=== PATIENT | female | born 1990 | race African-American/Black ===

== ENCOUNTER 2024-03-17 22:10 | Emergency (ER) | payer MEDICAID, SELFPAY ==
[2024-03-17 22:16] VITALS: BP 161/100; PULSE 83; TEMP 36.8; O2SAT 99; BMI 36.0
--- NOTE | 2024-03-17 23:01 | ED_ITS ---
HPI - Anxiety General Chief Complaint: Anxiety Stated Complaint: dizziness, weakness Time Seen by Provider: 03/17/24 22:52 Source: patient Mode of arrival: ambulance History of Present Illness HPI narrative: history of anxiety and asthma. 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 She started to feel anxious. she was then talking to someone. States she hit her hand because she talks with her hands and this made her anxiety worse. States she felt like she was wheezing and used her inhaler but continued to feel more anxious and even like she would pass out. Squad arrived and once she was in their truck and in cooler air she felt better and arrives here asymptomatic. No complaint at this time Related Data Allergies Allergy/AdvReac Type Severity Reaction Status Date / Time acetaminophen [From Vicodin] Allergy Mild Hives Verified 03/17/24 22:16 hydrocodone [From Vicodin] Allergy Mild Hives Verified 03/17/24 22:16 Penicillins Allergy Mild Hives Verified 03/17/24 22:16 Review of Systems ROS Status of ROS 10 or more systems reviewed and unremark able except as noted in history and below Exam Constitutional Vital Signs, click to edit/add: Last Vital Signs Temp 98.2 F 03/17/24 22:16 Pulse 83 03/17/24 22:16 Resp 14 03/17/24 22:16 BP 161/100 H 03/17/24 22:16 Pulse Ox 99 03/17/24 22:16 O2 Del Method Room Air 03/17/24 22:16 Common normals: no apparent distress, average body habitus, oriented x3, no limitations, healthy appearing, alert and well nourished [facility] Common normals: normocephalic and head/scalp atraumatic Eye Common normals: EOMs intact bilaterally and conjunctivae normal Respiratory Common normals: normal respiratory effort, no retractions, no use of accessory muscles and clear to auscultation bilaterally Cardio Common normals: regular rate, regular rhythm, S1 normal heart sound and S2 normal heart sound Extremity Common normals: normal to inspection and full ROM Neuro Common normals: oriented x3, CN's II-XII intact bilaterally and moves all extremities Psych Appearance: grossly normal Course Vital Signs Vital signs: Vital Signs Temperature 98.2 F 03/17/24 22:16 Pulse Rate 83 03/17/24 22:16 Respiratory Rate 14 03/17/24 22:16 Blood Pressure 161/100 H 03/17/24 22:16 Pulse Oximetry 99 03/17/24 22:16 Oxygen Delivery Method Room Air 03/17/24 22:16 Temperature 98.2 F 03/17/24 22:16 Pulse Rate 83 03/17/24 22:16 Respiratory Rate 14 03/17/24 22:16 Blood Pressure 161/100 H 03/17/24 22:16 Pulse Oximetry 99 03/17/24 22:16 Oxygen Delivery Method Room Air 03/17/24 22:16 MDM - Anxiety MDM Narrative Medical decision making narrative: patient present from work with an anxiety attack. once she was placed in the [employer] truck her symptoms starting abating and she arrives here asymptomatic. Normal exam. Discharged home in improved and stable condition Discharge Plan Discharge Stand Alone Forms: Portal Instructions Chief Complaint: Anxiety Clinical Impression: Acute anxiety Patient Disposition: Home, Self-Care Print Language: Hungarian Instructions: Anxiety (ED) Referrals: STEVEN LUCAS [Primary Care Provider] - 1 week
== END 2024-03-17 23:08 | disposition home or self-care (01) ==
PROVIDERS: Emergency Provider Internal Medicine
DX: F41.9 Anxiety disorder, unspecified (principal)
CPT/HCPCS: 99283

== ENCOUNTER 2024-05-02 20:50 | Emergency (ER) | payer MEDICAID, SELFPAY ==
[2024-05-02 20:55] VITALS: BP 167/81; PULSE 83; TEMP 36.5; O2SAT 100; O2SAT 99; BMI 36.0
--- NOTE | 2024-05-02 20:56 | XR_ITS ---
The [address] [address] Patient Name: DARY MORALEZ MRN: [id number] date: 1990 Sex: F Assigned Patient Location: ER Current Patient Location: Accession/Order Number: [id number] Exam Date: 05/02/2024 21:40 Report Date: 05/02/2024 23:59 At the request of: CHRIS ANDRADE Procedure: XR chest 1V EXAM: XR chest 1V HISTORY: Dizziness, near-syncope COMPARISON: None. TECHNIQUE: One view of the chest was obtained. FINDINGS: The cardiac silhouette is borderline enlarged. There is interstitial prominence. There is no significant pneumothorax or pleural effusion. No acute osseous abnormality is seen. XR/XR chest 1V IMPRESSION: 1. Borderline enlarged cardiac silhouette with mild interstitial prominence that could represent edema and/or bronchitis. Electronically authenticated by: Terry ANDERSON Date: 05/02/2024 23:59
--- NOTE | 2024-05-02 20:56 | ECG_ITS ---
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
--- NOTE | 2024-05-02 20:57 | ED.DIZZY1 ---
Documented by User: Mariandaya Dumonton 05/02/24 22:00 HPI - Dizziness General Chief Complaint: Dizziness Stated Complaint: SOB Time Seen by Provider: 05/02/24 20:56 History of Present Illness HPI Narrative: 33 year old female presents to the ED via EMS. This evening she developed dizziness, N/V. Reports a near-syncopal episode. States she became diaphoretic. States she lowered herself to the floor. 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 The temperature outside was in the 90s today. Denies CP. She now has a cough. Denies BUNCH, vision changes, abd pain, diarrhea. She is feeling much better. Denies chance of . Denies cardiac history. Related Data Allergies Allergy/AdvReac Type Severity Reaction Status Date / Time acetaminophen [From Vicodin] Allergy Mild Hives Verified 05/02/24 20:58 hydrocodone [From Vicodin] Allergy Mild Hives Verified 05/02/24 20:58 Penicillins Allergy Mild Hives Verified 05/02/24 20:58 Review of Systems ROS Constitutional Reports: fatigue; Denies: fever or chills Eyes Denies: change in vision Ears, nose, mouth, and throat Denies: throat pain or neck pain Cardiovascular Reports: lightheadedness; Denies: chest pain Respiratory Reports: cough Gastrointestinal Reports: nausea and vomiting; Denies: abdominal pain or diarrhea Musculoskeletal Denies: back pain or neck pain Neurological Reports: dizziness; Denies: headache or numbness in extremities Exam Constitutional Vital Signs, click to edit/add: Last Vital Signs Temp 97.7 F 05/02/24 20:55 Pulse 71 05/02/24 21:30 Resp 25 H 05/02/24 21:30 BP 167/81 H 05/02/24 20:55 Pulse Ox 100 05/02/24 20:55 O2 Del Method Room Air 05/02/24 20:55 Common normals: no apparent distress, oriented x3 and alert General appearance: cooperative Other: Diaphoretic HENMT Mouth: oral and palatal mucosa normal, lip normal and tongue normal Throat: posterior oropharynx normal Eye Common normals: PERRL, EOMs intact bilaterally, conjunctivae normal and no scleral icterus Neck & C-Spine Common normals: supple Chest Chest: symmetrical chest wall rise Respiratory Common normals: normal respiratory effort and clear to auscultation bilaterally Effort & inspection: able to speak in complete sentences Cardio Common normals: regular rate and regular rhythm Neuro Common normals: oriented x3, CN's II-XII intact bilaterally and moves all extremities Sensorium/orientation: awake Speech: speech normal Course Vital Signs Vital signs: Vital Signs Temperature 97.7 F 05/02/24 20:55 Pulse Rate 83 05/02/24 20:55 Respiratory Rate 18 05/02/24 20:55 Blood Pressure 167/81 H 05/02/24 20:55 Pulse Oximetry 99 05/02/24 20:55 Oxygen Delivery Method Room Air 05/02/24 20:55 Temperature 97.7 F 05/02/24 20:55 Pulse Rate 71 05/02/24 21:30 Respiratory Rate 25 H 05/02/24 21:30 Blood Pressure 167/81 H 05/02/24 20:55 Pulse Oximetry 100 05/02/24 20:55 Oxygen Delivery Method Room Air 05/02/24 20:55 MDM - Dizziness MDM Narrative Medical decision making narrative: Laboratory studies were pending. Care was resumed to Dr. San. See her dictation for further evaluation and treatment. Medical Records Attestation: I reviewed the patient's medical records. Lab Data Attestation: I reviewed the patient's lab results. Labs: Lab Results 05/02/24 Range/Units 21:05 WBC 9.8 (4.0-11.0) 10^3/uL RBC 3.66 L (4.20-5.40) 10^6/uL Hgb 10.9 L (12.0-16.0) g/dL Hct 33.2 L (36.0-48.0) % MCV 90.7 (81.0-99.0) fL MCH 29.8 (26.7-34.0) pg MCHC 32.8 (29.9-35.2) g/dL RDW 13.6 (11.0-15.0) % Plt Count 212 (150-450) 10^3/uL MPV 10.9 (9.5-13.5) fL Neut % (Auto) 58.1 (43.0-75.0) % Lymph % (Auto) 29.8 (20.5-60.0) % [place] % (Auto) 6.1 (1.7-12.0) % Eos % (Auto) 5.3 (0.9-7.0) % Baso % (Auto) 0.4 (0.2-2.0) % Neut # (Auto) 5.7 (1.4-6.5) 10^3/uL Lymph # (Auto) 2.9 (1.2-3.8) 10^3/uL [place] # (Auto) 0.6 (0.3-0.8) 10^3/uL Eos # (Auto) 0.5 (0.0-0.7) 10^3/uL Baso # (Auto) 0.0 (0.0-0.1) 10^3/uL Abs Immat Gran (auto) 0.03 (0.00-0.03) 10^3/uL Imm/Tot Granulo (auto) 0.3 (0.0-0.5) % Sodium 143 (136-145) mmol/L Potassium 3.6 (3.5-5.1) mmol/L Chloride 105 (98-107) mmol/L Carbon Dioxide 28.5 (21.0-32.0) mmol/L Anion Gap 13.1 BUN 13.0 (7.0-18.0) mg/dL Creatinine 0.92 (0.55-1.02) mg/dL Est GFR ( Amer) >60 (>=60) Est GFR (Non-Af Amer) >60 (>=60) BUN/Creatinine Ratio 14.1 Glucose 108 H (74-106) mg/dL Calcium 8.7 (8.5-10.1) mg/dL Magnesium 2.1 (1.8-2.4) mg/dL Total Bilirubin 0.3 (0.2-1.0) mg/dL AST 15 (15-37) U/L ALT 25 (14-59) U/L Alkaline Phosphatase 59 (46-116) U/L Total Protein 6.4 (6.4-8.2) g/dL Albumin 3.5 (3.4-5.0) g/dL Globulin 2.9 g/dL Albumin/Globulin Ratio 1.2 ECG Data Attestation: ?I have reviewed the pertinent ECG results. (EKG was reviewed by the attending physician. It showed sinus rhythm at a rate of 78. No acute ST segment changes. ) Interpretation: Measurements Intervals [place] Rate: 78 P: 57 MS: 146 QRS: 87 QRSD: 84 T: 51 QT: 388 QTc: 421 Interpretive Statements 1100 Sinus rhythm 9110 normal ECG No previous ECG available for comparison Discharge Plan Discharge Stand Alone Forms: Work/School Release, Portal Instructions Chief Complaint: Dizziness Clinical Impression: Near syncope, Heat effect Patient Disposition: Home, Self-Care Time of Disposition Decision: 22:15 Condition: Good Print Language: Montserratian Instructions: Heat Exhaustion (ED) Referrals: STEVEN LUCAS [Primary Care Provider] - 1 week Documented by User: Adri San MD 05/02/24 22:17 HPI - Dizziness General Chief Complaint: Dizziness Stated Complaint: SOB Time Seen by Provider: 05/02/24 20:56 Related Data Allergies Allergy/AdvReac Type Severity Reaction Status Date / Time acetaminophen [From Vicodin] Allergy Mild Hives Verified 05/02/24 20:58 hydrocodone [From Vicodin] Allergy Mild Hives Verified 05/02/24 20:58 Penicillins Allergy Mild Hives Verified 05/02/24 20:58 Exam Constitutional Vital Signs, click to edit/add: Last Vital Signs Temp 97.7 F 05/02/24 20:55 Pulse 71 05/02/24 21:30 Resp 25 H 05/02/24 21:30 BP 167/81 H 05/02/24 20:55 Pulse Ox 100 05/02/24 20:55 O2 Del Method Room Air 05/02/24 20:55 Course Vital Signs Vital signs: Vital Signs Temperature 97.7 F 05/02/24 20:55 Pulse Rate 83 05/02/24 20:55 Respiratory Rate 18 05/02/24 20:55 Blood Pressure 167/81 H 05/02/24 20:55 Pulse Oximetry 99 05/02/24 20:55 Oxygen Delivery Method Room Air 05/02/24 20:55 Temperature 97.7 F 05/02/24 20:55 Pulse Rate 71 05/02/24 21:30 Respiratory Rate 25 H 05/02/24 21:30 Blood Pressure 167/81 H 05/02/24 20:55 Pulse Oximetry 100 05/02/24 20:55 Oxygen Delivery Method Room Air 05/02/24 20:55 MDM - Dizziness MDM Narrative Medical decision making narrative: Laboratory studies were pending. Care was resumed to Dr. San. See her dictation for further evaluation and treatment. This 33-year-old female was seen and evaluated in conjunction with the nurse practitioner. 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 She was medicated in the emergency department on reevaluation is feeling better. She is drinking water having a popsicle and a granola bar. She request to be discharged at this time and requests a note for work for today and tomorrow as the temperature is post to be in the 100 degree range tomorrow and she was told to get a note for work so she does not have to go in tomorrow. Labs are reviewed and are normal. She is stable for discharge at this time. Lab Data Labs: Lab Results 05/02/24 Range/Units 21:05 WBC 9.8 (4.0-11.0) 10^3/uL RBC 3.66 L (4.20-5.40) 10^6/uL Hgb 10.9 L (12.0-16.0) g/dL Hct 33.2 L (36.0-48.0) % MCV 90.7 (81.0-99.0) fL MCH 29.8 (26.7-34.0) pg MCHC 32.8 (29.9-35.2) g/dL RDW 13.6 (11.0-15.0) % Plt Count 212 (150-450) 10^3/uL MPV 10.9 (9.5-13.5) fL Neut % (Auto) 58.1 (43.0-75.0) % Lymph % (Auto) 29.8 (20.5-60.0) % [place] % (Auto) 6.1 (1.7-12.0) % Eos % (Auto) 5.3 (0.9-7.0) % Baso % (Auto) 0.4 (0.2-2.0) % Neut # (Auto) 5.7 (1.4-6.5) 10^3/uL Lymph # (Auto) 2.9 (1.2-3.8) 10^3/uL [place] # (Auto) 0.6 (0.3-0.8) 10^3/uL Eos # (Auto) 0.5 (0.0-0.7) 10^3/uL Baso # (Auto) 0.0 (0.0-0.1) 10^3/uL Abs Immat Gran (auto) 0.03 (0.00-0.03) 10^3/uL Imm/Tot Granulo (auto) 0.3 (0.0-0.5) % Sodium 143 (136-145) mmol/L Potassium 3.6 (3.5-5.1) mmol/L Chloride 105 (98-107) mmol/L Carbon Dioxide 28.5 (21.0-32.0) mmol/L Anion Gap 13.1 BUN 13.0 (7.0-18.0) mg/dL Creatinine 0.92 (0.55-1.02) mg/dL Est GFR ( Amer) >60 (>=60) Est GFR (Non-Af Amer) >60 (>=60) BUN/Creatinine Ratio 14.1 Glucose 108 H (74-106) mg/dL Calcium 8.7 (8.5-10.1) mg/dL Magnesium 2.1 (1.8-2.4) mg/dL Total Bilirubin 0.3 (0.2-1.0) mg/dL AST 15 (15-37) U/L ALT 25 (14-59) U/L Alkaline Phosphatase 59 (46-116) U/L Total Protein 6.4 (6.4-8.2) g/dL Albumin 3.5 (3.4-5.0) g/dL Globulin 2.9 g/dL Albumin/Globulin Ratio 1.2 ECG Data Attestation: I personally reviewed and interpreted this ECG as follows: (EKG was reviewed by the attending physician. It showed sinus rhythm at a rate of 78. No acute ST segment changes. ) Discharge Plan Discharge Stand Alone Forms: Work/School Release, Portal Instructions Chief Complaint: Dizziness Clinical Impression: Near syncope, Heat effect Patient Disposition: Home, Self-Care Time of Disposition Decision: 22:15 Condition: Good Print Language: Montserratian Instructions: Heat Exhaustion (ED) Referrals: STEVEN LUCAS [Primary Care Provider] - 1 week
[2024-05-02 21:00] VITALS: PULSE 79
[2024-05-02 21:10] VITALS: PULSE 89
[2024-05-02 21:19] LABS: Basophils Percent Auto 0.4 % (0.2-2.0); Eosinophils Absolute Auto 0.5 10^3/uL (0.0-0.7); Eosinophils Percent Auto 5.3 % (0.9-7.0); Hematocrit 33.2 % (36.0-48.0); Hemoglobin 10.9 g/dL (12.0-16.0); Immature Granulocytes Abs Auto 0.03 10^3/uL (0.00-0.03); Immature Granulocytes Pct Auto 0.3 % (0.0-0.5); Lymphocytes Absolute Auto 2.9 10^3/uL (1.2-3.8); Lymphocytes Percent Auto 29.8 % (20.5-60.0); Mean Corpuscular HGB Conc 32.8 g/dL (29.9-35.2); Mean Corpuscular Hemoglobin 29.8 pg (26.7-34.0); Mean Corpuscular Volume 90.7 fL (81.0-99.0); Mean Platelet Volume 10.9 fL (9.5-13.5); Monocytes Absolute Auto 0.6 10^3/uL (0.3-0.8); Monocytes Percent Auto 6.1 % (1.7-12.0); Neutrophils Absolute Auto 5.7 10^3/uL (1.4-6.5); Neutrophils Percent Auto 58.1 % (43.0-75.0); Platelet Count 212 10^3/uL (150-450); Red Blood Count 3.66 10^6/uL (4.20-5.40); Red Cell Distribution Width 13.6 % (11.0-15.0); White Blood Count 9.8 10^3/uL (4.0-11.0)
[2024-05-02 21:20] VITALS: PULSE 79
[2024-05-02] MEDS: 0.9 % SODIUM CHLORIDE 1,000 ML 999 ML IV (21:20)
[2024-05-02 21:30] VITALS: PULSE 71
[2024-05-02 21:34] LABS: Alanine Aminotransferase 25 U/L (14-59); Albumin Globulin Ratio 1.2; Albumin Level 3.5 g/dL (3.4-5.0); Alkaline Phosphatase 59 U/L (46-116); Anion Gap 13.1; Aspartate Amino Transferase 15 U/L (15-37); BUN Creatinine Ratio 14.1; Bilirubin Total 0.3 mg/dL (0.2-1.0); Calcium 8.7 mg/dL (8.5-10.1); Carbon Dioxide 28.5 mmol/L (21.0-32.0); Chloride 105 mmol/L (98-107); Estimated GFR (African America >60 (>=60); Estimated GFR (Non-African Ame >60 (>=60); Globulin 2.9 g/dL; Glucose 108 mg/dL (74-106); Magnesium 2.1 mg/dL (1.8-2.4); Potassium 3.6 mmol/L (3.5-5.1); Sodium 143 mmol/L (136-145); Total Protein 6.4 g/dL (6.4-8.2)
[2024-05-02 22:25] VITALS: BP 145/85; PULSE 80; O2SAT 99
[2024-05-02 23:52] LABS: Creatine Kinase 136 U/L (26-192); Myoglobin 37 ng/mL (9-82); Troponin I High Sensitivity <4.0 pg/mL (4.0-51.3)
== END 2024-05-02 22:25 | disposition home or self-care (01) ==
PROVIDERS: Nurse Practitioner Family; Emergency Provider Emergency Medicine
DX: R55 Syncope and collapse (principal); T67.9XXA Effect of heat and light, unspecified, initial encounter; X30.XXXA Exposure to excessive natural heat, initial encounter
CPT/HCPCS: 36415; 71045; 80053; 82550; 83735; 83874; 84484; 85025; 93005; 96360; 99285

== ENCOUNTER 2024-09-17 05:31 | Emergency (ER) | payer MEDICAID, SELFPAY ==
--- OUTSIDE RECORDS SUMMARY | 2024-09-17 05:38 | XMS_ITS | CCD ---
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 [address] pH (U) 7.5 [pH] Normal 5.0-9.0 [facility] Comment on above: Order Comment: Name Collection Type:: Clean-Voided Midstream Performed By: #### U A, UHCG #### [address] Protein,Urine Negative Normal Negative [facility] Comment on above: Order Comment: Name Collection Type:: Clean-Voided Midstream Performed By: #### U A, UHCG #### [place] [address] [place] Specificy [place],Urine 1.014 Normal 1.001-1.030 [facility] Comment on above: Order Comment: Name Collection Type:: Clean-Voided Midstream Performed By: #### U A, UHCG #### [address] Urobilinogen,Urine Normal Normal Normal [facility] Comment on above: Order Comment: Name Collection Type:: Clean-Voided Midstream Performed By: #### U A, UHCG #### [place] [address] [facility] XR chest 1V portableon 11-23 XR chest 1V portable [facility] [address] [place] [address] XRay Report Signed Patient: Darrell Musa MR#: [id number] : 1990 Acct:[id number] Age/Sex: 33 / F ADM Date: 11/23/23 Loc: ER Room: Type: [facility] ER Attending Dr: Copies to: Richard Irwin DO Ordering Provider: Richard Irwin DO Date of Service: 11/23/23 XR/XR chest 1V portable: Upper Respiratory Infection Plain film chest Single view HISTORY: Cough and congestion COMPARISON: 02/10/2019 FINDINGS: SUPPORT DEVICES: None POSTSURGICAL CHANGES: None HEART: Within normal limits PULMONARY ANDRIY: Within normal limits MEDIASTINUM: Unremarkable LUNGS AND PLEURA: No acute lung process, pleural effusion or pneumothorax identified. BONY STRUCTURES: Intact ADDITIONAL FINDINGS None XR/XR chest 1V portable IMPRESSION: No acute process. Impression dictated by: Stuart Garcia M.D.11/24/2023 8:04 AM Dictation Location: [facility] Transcribed By: [facility] 11/24/23 0804 Dictated By: Stuart Garcia DO 11/24/23 0804 Signed By: 11/24/23 0804 Normal [facility] COVID CepheidOrdered By: Jewell Irwin on 11-23-2023 SARS-CoV-2 (COVID-19) Ab IA Ql Negative Negative [facility] Comment on above: This is a duplicate Cepheid Xpert Xpress CoV-2/Flu/RSV Plus RNA by RT-PCR result to be used for statistical tracking purpose only. SARS-CoV-2 (COVID-19) RNA HAILEY+probe Ql (Unsp spec) [facility] COVID-19 / Flu A/B / RSV PCR on 11-23-2023 SARS-CoV-2 (COVID-19) RNA HAILEY+probe Ql (Unsp spec) COVID-19 Cepheid Result Negative for SARS-CoV-2 RNA by RT-PCR Flu A Cepheid Result Positive for Flu A RNA by RT-PCR Flu B Cepheid Result Negative for Flu B RNA by RT-PCR RSV Cepheid Result Negative for RSV RNA by RT-PCR COVID19 Blank Space Reference: Negative COVID19 Blank Space Cepheid Disclaimer The Cepheid Xpert Xpress CoV-2/Flu/RSV Plus has Cepheid Disclaimer not been FDA cleared or approved; this test has Cepheid Disclaimer been authorized by FDA under an EUA for use by Cepheid Disclaimer authorized laboratories; this test has been Cepheid Disclaimer authorized only for the simultaneous qualitative Cepheid Disclaimer detection and differentiation of nucleic acids from Cepheid Disclaimer SARS-CoV-2, influenza A, influenza B, and Cepheid Disclaimer respiratory syncytial virus (RSV), and not for any Cepheid Disclaimer other viruses or pathogens; and this test is only Cepheid Disclaimer authorized for the duration of the declaration that Cepheid Disclaimer circumstances exist justifying the authorization of Cepheid Disclaimer emergency use of in vitro diagnostic tests for Cepheid Disclaimer detection and/or diagnosis of COVID-19 under Cepheid Disclaimer Section 564(b)(1) of the Act, 21 U.S.C. 360bbb- Cepheid Disclaimer 3(b)(1), unless the authorization is terminated or Cepheid Disclaimer revoked sooner. PERFORMED BY: [facility] [address] [place] [address] PATHOLOGIST FAMILY AND CONSUMER SCIENCE PROFESSOR GENET NEWMAN M.D. Normal [facility] Comment on above: Performed By: #### C EPHEID NEG, COVID19 FLU RSV #### [facility] [address] [place] [address] [facility] Cepheid COVID PCR Negativeon 11-23-2023 SARS-CoV-2 (COVID-19) RNA HAILEY+probe Ql (Unsp spec) Negative Normal Negative [facility] Comment on above: Result Comment: This is a duplicate Cepheid Xpert Xpress CoV-2/Flu/RSV Plus RNA by RT-PCR result to be used for statistical tracking purpose only. PERFORMED BY: [facility] [address] [place] [address] PATHOLOGIST FAMILY AND CONSUMER SCIENCE PROFESSOR GENET NEWMAN M.D. Performed By: #### C EPHEID NEG, COVID19 FLU RSV #### [facility] [address] COVID CepheidOrdered By: Humberto Gardner on 11-08-2023 SARS-CoV-2 (COVID-19) Ab IA Ql Negative Negative [facility] Comment on above: This is a duplicate Cepheid Xpert Xpress CoV-2/Flu/RSV Plus RNA by RT-PCR result to be used for statistical tracking purpose only. SARS-CoV-2 (COVID-19) RNA HAILEY+probe Ql (Unsp spec) [facility] COVID-19 / Flu A/B / RSV PCR on 11-08-2023 SARS-CoV-2 (COVID-19) RNA HAILEY+probe Ql (Unsp spec) COVID-19 Cepheid Result Negative for SARS-CoV-2 RNA by RT-PCR Flu A Cepheid Result Negative for Flu A RNA by RT-PCR Flu B Cepheid Result Negative for Flu B RNA by RT-PCR RSV Cepheid Result Negative for RSV RNA by RT-PCR COVID19 Blank Space Reference: Negative COVID19 Blank Space Cepheid Disclaimer The Cepheid Xpert Xpress CoV-2/Flu/RSV Plus has Cepheid Disclaimer not been FDA cleared or approved; this test has Cepheid Disclaimer been authorized by FDA under an EUA for use by Cepheid Disclaimer authorized laboratories; this test has been Cepheid Disclaimer authorized only for the simultaneous qualitative Cepheid Disclaimer detection and differentiation of nucleic acids from Cepheid Disclaimer SARS-CoV-2, influenza A, influenza B, and Cepheid Disclaimer respiratory syncytial virus (RSV), and not for any Cepheid Disclaimer other viruses or pathogens; and this test is only Cepheid Disclaimer authorized for the duration of the declaration that Cepheid Disclaimer circumstances exist justifying the authorization of Cepheid Disclaimer emergency use of in vitro diagnostic tests for Cepheid Disclaimer detection and/or diagnosis of COVID-19 under Cepheid Disclaimer Section 564(b)(1) of the Act, 21 U.S.C. 360bbb- Cepheid Disclaimer 3(b)(1), unless the authorization is terminated or Cepheid Disclaimer revoked sooner. PERFORMED BY: [place] [address] PATHOLOGIST FAMILY AND CONSUMER SCIENCE PROFESSOR GENET NEWMAN M.D. Normal [facility] Comment on above: Performed By: #### C EPHEID NEG, COVID19 FLU RSV, QS #### [address] Cepheid COVID PCR Negativeon 11-08-2023 SARS-CoV-2 (COVID-19) RNA HAILEY+probe Ql (Unsp spec) Negative Normal Negative [facility] Comment on above: Result Comment: This is a duplicate Cepheid Xpert Xpress CoV-2/Flu/RSV Plus RNA by RT-PCR result to be used for statistical tracking purpose only. PERFORMED BY: [place] [address] PATHOLOGIST FAMILY AND CONSUMER SCIENCE PROFESSOR GENET NEWMAN M.D. Performed By: #### C EPHEID NEG, COVID19 FLU RSV, QS #### [address] [address] [facility] Quick Strepon 11-08-2023 Quick Strep Streptococcus pyogenes Ag [Presence] in Throat by Rapid immunoassay Negative for Group A Strep Antigen Note 1 NOTE 2 Results are those of a screening test. NOTE 3 If clinically indicated please order a culture. NOTE 4 NOTE 5 Reference range = Negative PERFORMED BY: [address] [place] [address] PATHOLOGIST FAMILY AND CONSUMER SCIENCE PROFESSOR GENET NEWMAN M.D. Normal [facility] Comment on above: Performed By: #### C EPHEID NEG, COVID19 FLU RSV, QS #### [address] Streptococcus pyogenes antig en detectionOrdered By: Lupe Gardner on 11-08-2023 S. pyogenes Ag Ql (Unsp spec) [facility] Family Medicine Office/Clini c Noteon 09-03-2023 Family Medicine Office/Clinic Note Chief Complaint New pt wheezing HPI Staff 33 yo female here today with wheezing Symptoms began going on for a long time Complains of wheezing at night Pt states she needs inhaler- lost last one pt has acute asthma History of Present Illness I have reviewed and verified the staff HPI to be accurate for this encounter. Portions of this record have been created with voice recognition software. Occasional wrong-word or ?llrso-u-cxij? substitutions may have occurred due to the inherent limitations of voice recognition software. 33 yo female presents today with cc of wheezing. Pt does note hx of asthma. Patient states about 2 days ago she noticed some wheezing. States she has a slight cough but states is not totally abnormal for her. States that she has had intermittent wheezing for a long time with her history of asthma states it is mostly at nighttime. States she could not find her inhaler so has not had it in a couple of days. Denies any recent sick contacts or recent travel. She states she has black mold and white mold at her home which does not help her asthma states she is also 1/2 pack/day smoker. States that her current job she works with [employer] was around lots of dust etc. which also does not help. She denies any fever chills weakness denies any recent sick contacts or recent travel denies any known COVID-19 or influenza exposure denies any chest pain shortness of breath or difficulty breathing with her cough but denies any wheezing currently at this time. She has no other concerns at this time. Does have follow-up primary care provider in [place] but states was not able to get into see them and plans to return to work today. Medication allergy to amoxicillin and penicillin. Review of Systems PHQ Score Initial Depression Screen Score: 0 SCORE ROS negative unless otherwise stated in HPI. Physical Exam Vitals & Measurements T: 36.7 ?C(Oral) HR: 100(Peripheral) BP: 132/86 SpO2: 97% HT: 67 in HT: 169 cm WT: 103.4 kg WT: 227.48 lb BMI: 36.2 General: Pleasant obese female, no acute distress Eyes: Bilateral conjunctiva within normal limits no injection Ears: Bilateral TMs within normal limits no erythema or bulging. Bilateral external auditory canals within normal limits no erythema or edema. Nose: No deformity, discharge, inflammation, or lesions Mouth: Moist mucous membranes. Uvula is midline. No tonsillar erythema or exudate. No signs of peritonsillar abscess. No trismus or drooling. Neck: no adenopathy Lungs: Lung sounds are clear bilaterally. No wheezing rhonchi or crackles on exam. Cardio: S1, S2, regular rhythm. No murmurs gallops or rubs. Abdomen: not assessed Musculoskeletal: not assessed Extremity: not assessed Neurologic: not assessed Skin: No rashes, ulcerations, or suspicious lesions Mental Status: Alert and oriented x3. Normal mood and affect Assessment/Plan 1. Wheezing (R06.2: Wheezing) Please follow-up with your primary care provider in 3 to 5 days contact their office this afternoon to schedule a follow-up appointment. You were seen and evaluated today in convenient care in regards to wheezing with history of asthma. You do have a little bit of a slight cough which seems to be intermittent in which we will treat with Tessalon Perles, cough suppressant 1 tablet every 8 hours as needed for coughing over the next 7 days. Will also send a refill of your albuterol inhaler 2 puffs every 4-6 hours as needed for wheezing and as prescribed by primary care provider as well. Patient agrees and understands plan. She will follow closely with primary care provider if she would develop any worsening or concerning symptoms and understands ER for reevaluation if shops any chest pain shortness of breath or difficulty breathing. Patient agrees and understands plan. Ordered: albuterol, 2 puff(s), Inhalation, q4hr for wheezing for 7 day(s), 8 gm, Refill(s) 0, [facility]/pharmacy #[id number], 169, cm, 09/03/23 10:41:00 EST, Height/Length Dosing, 103.4, kg, 09/03/23 10:41:00 EST, Weight Dosing benzonatate, 100 mg = 1 cap(s), Oral, TID, X 7 day(s), # 21 cap(s), Refills(s) 0, Pharmacy: [facility]/pharmacy #[id number], 169, cm, 09/03/23 10:41:00 EST, Height/Length Dosing, 103.4, kg, 09/03/23 10:41:00 EST, Weight Dosing 2. Cough (R05.9: Cough, unspecified) see above Ordered: albuterol, 2 puff(s), Inhalation, q4hr for wheezing for 7 day(s), 8 gm, Refill(s) 0, [facility]/pharmacy #[id number], 169, cm, 09/03/23 10:41:00 EST, Height/Length Dosing, 103.4, kg, 09/03/23 10:41:00 EST, Weight Dosing benzonatate, 100 mg = 1 cap(s), Oral, TID, X 7 day(s), # 21 cap(s), Refills(s) 0, Pharmacy: [facility]/pharmacy #[id number], 169, cm, 09/03/23 10:41:00 EST, Height/Length Dosing, 103.4, kg, 09/03/23 10:41:00 EST, Weight Dosing Follow-up With When Contact Information NONE, XXXX [phone] Additional Instructions: Patient Education Cough, Adult Problem List/Past Medical History Ongoing Abnormal uterine bleeding. Abrasion of nose Adjustment disorder with disturbance o (more content not included)... Normal [facility] Comment on above: Result Comment: Elec tronically Signed By: Pedro GEORGE, Abad Ramires\.br\Date and Time Signed: 09/03/23 11:24 EST Patient Educationon 09-03-20 Patient Education ENT Cough, Adult Coughing is a reflex that clears your throat and your airways (respiratory system). Coughing helps to heal and protect your lungs. It is normal to cough occasionally, but a cough that happens with other symptoms or lasts a long time may be a sign of a condition that needs treatment. An acute cough may only last 2?3 weeks, while a chronic cough may last 8 or more weeks. Coughing is commonly caused by: ? Infection of the respiratory systemby viruses or bacteria. ? Breathing in substances that irritate your lungs. ? Allergies. ? Asthma. ? Mucus that runs down the back of your throat (postnasal drip). ? Smoking. ? Acid backing up from the stomach into the esophagus (gastroesophageal reflux). ? Certain medicines. ? Chronic lung problems. ? Other medical conditions such as heart failure or a blood clot in the lung (pulmonary embolism). Follow these instructions at home: Medicines ? Take vyjk-ote-zzgrruh and prescription medicines only as told by your health care provider. ? Talk with your health care provider before you take a cough suppressant medicine. Lifestyle ? Avoid cigarette smoke. Do not use any products that contain nicotine or tobacco, such as cigarettes, e-cigarettes, and chewing tobacco. If you need help quitting, ask your health care provider. ? Drink enough fluid to keep your urine pale yellow. ? Avoid caffeine. ? Do not drink alcohol if your health care provider tells you not to drink. General instructions ? Pay close attention to changes in your cough. Tell your health care provider about them. ? Always cover your mouth when you cough. ? Avoid things that make you cough, such as perfume, candles, cleaning products, or campfire or tobacco smoke. ? If the air is dry, use a cool mist vaporizer or humidifier in your bedroom or your home to help loosen secretions. ? If your cough is worse at night, try to sleep in a semi-upright position. ? Rest as needed. ? Keep all follow-up visits as told by your health care provider. This is important. Contact a health care provider if you: ? Have new symptoms. ? Cough up pus. ? Have a cough that does not get better after 2?3 weeks or gets worse. ? Cannot control your cough with cough suppressant medicines and you are losing sleep. ? Have pain that gets worse or pain that is not helped with medicine. ? Have a fever. ? Have unexplained weight loss. ? Have night sweats. Get help right away if: ? You cough up blood. ? You have difficulty breathing. ? Your heartbeat is very fast. These symptoms may represent a serious problem that is an emergency. Do not wait to see if the symptoms will go away. Get medical help right away. Call your local emergency services (911 in the [place] Do not drive yourself to the hospital. Summary ? Coughing is a reflex that clears your throat and your airways. It is normal to cough occasionally, but a cough that happens with other symptoms or lasts a long time may be a sign of a condition that needs treatment. ? Take qfpw-wzx-eycoybd and prescription medicines only as told by your health care provider. ? Always cover your mouth when you cough. ? Contact a health care provider if you have new symptoms or a cough that does not get better after 2?3 weeks or gets worse. This information is not intended to replace advice given to you by your health care provider. Make sure you discuss any questions you have with your health care provider. Document Revised: 09/12/2019 Document Reviewed: 09/12/2019 [employer] Patient Education ? 2022 [employer] Normal [facility] Bilirubin Test strip Ql (U)O rdered By: Silas Villarael on 04-01-2023 Bilirubin Ql (U) Negative Negative [facility] Color Auto (U)Ordered By: Dayana Villareal on 04-01-2023 Color (U) Yellow Yellow [facility] HCG ( test) IA.rapi d Ql (U)Ordered By: Silas Villareal on 04-01-2023 HCG ( test) Ql (U) Negative [facility] Ketones Auto test strip (U) [Mass/Vol]Ordered By: Silas Villareal on 04-01-2023 Ketones (U) [Mass/Vol] Negative Negative [facility] Nitrite Test strip Ql (U)Ord ered By: Silas Villareal on 04-01-2023 Nitrite Ql (U) Negative Negative [facility] Protein Auto test strip (U) [Mass/Vol]Ordered By: Silas Villareal on 04-01-2023 Protein (U) [Mass/Vol] Negative Negative [facility] Specific gravity Auto test s trip (U) [Rel density]Ordered By: Silas Villareal on 04-01-2023 Specific gravity (U) [Rel density] 1.022 1.001-1.030 [facility] Urine clarity by refractomet ry automatedOrdered By: Silas Villareal on 04-01-2023 Clarity Refractometry automated (U) Clear Clear [facility] Urine glucose measurement by automated test strip (mass/volume)Ordered By: Silas Villareal on 04-01-2023 Glucose Auto test strip (U) [Mass/Vol] Normal mg/dL Normal [facility] Urine hemoglobin detection b y automated test stripOrdered By: Silas Villareal on 04-01-2023 Hemoglobin Auto test strip Ql (U) Negative Negative [facility] Urine leukocyte esterase det ection by automated test stripOrdered By: Silas Villareal on 04-01-2023 Leukocyte esterase Auto test strip Ql (U) Negative Negative [facility] Urobilinogen Auto test strip (U) [Mass/Vol]Ordered By: Silas Villareal on 04-01-2023 Urobilinogen (U) [Mass/Vol] Normal mg/dL Normal [facility] pH Auto test strip (U)Ordere d By: Silas Villareal on 04-01-2023 pH (U) 5.5 [pH] 5.0-9.0 [facility] HCG ( test) IA.rapi d Ql (U)Ordered By: Don Dean on 08-22-2022 HCG ( test) Ql (U) Negative [facility] COVID-19 SOFIAOrdered By: Rene Barriga on 08-20-2022 SARS-CoV+SARS-CoV-2 (COVID-19) Ag IA.rapid Ql (Resp) Negative Negative [facility] Comment on above: This is a duplicate Kenyatta SARS Antigen (ALETHEA) result to be used for statistical tracking purpose only. No Panel InformationOrdered By: Hayder Wilson on 08-20-2022 SARS Antigen (LFIA) [facility] Basophils Auto (Bld) [#/Vol] Ordered By: Hayder Wilson on 08-13-2022 Basophils (Bld) [#/Vol] 0.0 10*3/uL 0.0-0.2 [facility] Basophils/100 WBC Auto (Bld) Ordered By: Hayder Wilson on 08-13-2022 Basophils/100 WBC (Bld) 0.4 % . F [facility] Creatinine and Glomerular fi ltration rate.predicted panel (S/P/Bld)Ordered By: Hayder Wilson on 08-13-2022 Creatinine [Mass/Vol] 0.72 mg/dL 0.44-1.03 [facility] Eosinophils Auto (Bld) [#/Vo l]Ordered By: Hayder Wilson on 08-13-2022 Eosinophils (Bld) [#/Vol] 0.2 10*3/uL 0.0-0.45 [facility] Eosinophils/100 WBC Auto (Bl d)Ordered By: Hayder Wilson on 08-13-2022 Eosinophils/100 WBC (Bld) 2.0 % . [facility] Erythrocyte distribution wid th Auto (RBC) [Ratio]Ordered By: Hayder Wilson on 08-13-2022 Erythrocyte distribution width (RBC) [Ratio] 14.2 % 11.9-15.3 [facility] Estimated glomerular filtrat ion rate (GFR) non- AmericanOrdered By: Hayder Wilson on 08-13-2022 GFR/1.73 sq M.predicted among non-blacks MDRD (S/P/Bld) [Vol rate/Area] > 60 mL/Min [facility] Hematocrit Auto (Bld) [Volum e fraction]Ordered By: Hayder Wilson on 08-13-2022 Hematocrit (Bld) [Volume fraction] 37.0 % 34.0-46.4 [facility] Hemoglobin [Mass/volume] in BloodOrdered By: Hayder Wilson on 08-13-2022 Hemoglobin (Bld) [Mass/Vol] 12.2 g/dL 11.8-15.4 [facility] Leukocytes [#/volume] correc yoly for nucleated erythrocytes in Blood by Automated counOrdered By: Hayder Wilson on 08-13-2022 WBC corrected for nucl RBC Auto (Bld) [#/Vol] 9.2 10*3/uL 3.8-11.6 [facility] Lymphocytes Auto (Bld) [#/Vo l]Ordered By: Hayder Wilson on 08-13-2022 Lymphocytes (Bld) [#/Vol] 2.0 10*3/uL 1.00-4.8 [facility] Lymphocytes/100 WBC Auto (Bl d)Ordered By: Hayder Wilson on 08-13-2022 Lymphocytes/100 WBC (Bld) 22.3 % . [facility] MCH Auto (RBC) [Entitic mass ]Ordered By: Hayder Wilson on 08-13-2022 MCH (RBC) [Entitic mass] 28.8 pg 24.7-34.3 [facility] MCHC Auto (RBC) [Mass/Vol]Or dered By: Hayder Wilson on 08-13-2022 MCHC (RBC) [Mass/Vol] 32.8 g/dL 32.0-35.0 Fir [facility] MCV Auto (RBC) [Entitic vol] Ordered By: Hayder Wilson on 08-13-2022 MCV (RBC) [Entitic vol] 87.6 fL 80-100 F [facility] Monocytes Auto (Bld) [#/Vol] Ordered By: Hayder Wilson on 08-13-2022 Monocytes (Bld) [#/Vol] 0.6 10*3/uL 0.0-0.8 [facility] Monocytes/100 WBC Auto (Bld) Ordered By: Hayder Wilson on 08-13-2022 Monocytes/100 WBC (Bld) 6.2 % . [facility] Neutrophils Auto (Bld) [#/Vo l]Ordered By: Hayder Wilson on 08-13-2022 Neutrophils (Bld) [#/Vol] 6.3 10*3/uL 1.8-7.7 [facility] Neutrophils/100 WBC Auto (Bl d)Ordered By: Hayder Wilson on 08-13-2022 Neutrophils/100 WBC (Bld) 69.1 % . [facility] No Panel InformationOrdered By: Hayder Wilson on 08-13-2022 Estimated GFR () > 60 mL/Min [facility] Comment on above: GFR estimated refere nce range: According to KDOQI guidelines, <60 ml/min/1.73m2 is sufficient to diagnose a patient with chronic kidney disease. Pharmacy Creatinine Clearance (Chem N/A [facility] Nucleated erythrocytes [Pres ence] in Blood by Automated countOrdered By: Hayder Wilson on 08-13-2022 Nucleated RBC Auto Ql (Bld) 0.0 /100{WBC} 0-0.5 [facility] Platelet mean volume Auto (B ld) [Entitic vol]Ordered By: Hayder Wilson on 08-13-2022 Platelet mean volume (Bld) [Entitic vol] 9.1 fL 6.3-10.7 [facility] Platelets Auto (Bld) [#/Vol] Ordered By: Hayder Wilson on 08-13-2022 Platelets (Bld) [#/Vol] 245 10*3/uL 150-450 [facility] RBC Auto (Bld) [#/Vol]Ordere d By: Hayder Wilson on 08-13-2022 RBC (Bld) [#/Vol] 4.23 10*6/uL 3.60-5.00 [facility] Serum or plasma anion gap de terminationOrdered By: Hayder Wilson on 08-13-2022 Anion gap [Moles/Vol] 12.7 mmol/L 6.0-15.0 [facility] Serum or plasma calcium aislinn urement (mass/volume)Ordered By: Hayder Wilson on 08-13-2022 Calcium [Mass/Vol] 9.5 mg/dL 8.2-10.2 [facility] Serum or plasma chloride albertina surement (moles/volume)Ordered By: Hayder Wilson on 08-13-2022 Chloride [Moles/Vol] 104 mmol/L 95-114 [facility] Serum or plasma glucose aislinn urement (mass/volume)Ordered By: Hayder Wilson on 08-13-2022 Glucose [Mass/Vol] 142 mg/dL 70-100 [facility] Comment on above: ADA recommended refe rence rangeRandom Glucose Reference Range is dependent on time and content of last meal. Glucose of more than 200 mg/dL in a nonstressed, ambulatory subject supports the diagnosis of Diabetes Mellitus. Serum or plasma potassium me asurement (moles/volume)Ordered By: Hayder Wilson on 08-13-2022 Potassium [Moles/Vol] 4.1 mmol/L 3.5-5.1 [facility] Serum or plasma sodium measu rement (moles/volume)Ordered By: Hayder Wislon on 08-13-2022 Sodium [Moles/Vol] 137 mmol/L 136-146 [facility] Serum or plasma total carbon dioxide measurement (moles/volume)Ordered By: Hayder Wilson on 08-13-2022 CO2 [Moles/Vol] 24.4 mmol/L 22.0-30.0 [facility] Serum or plasma urea nitroge n measurement (mass/volume)Ordered By: Hayder Wilson on 08-13-2022 Urea nitrogen [Mass/Vol] 11 mg/dL 9-23 [facility] WBC Auto (Bld) [#/Vol]Ordere d By: Hayder Wilson on 08-13-2022 WBC (Bld) [#/Vol] 9.2 10*3/uL 3.8-11.6 [facility] Bacteria identified Aer cx N om (Bronch spec)Ordered By: Abrahan Bowen on 08-06-2022 Genital Culture Strep. agalactiae Grp B [facility] Automated epithelial cells c ount in urine sediment (number/area)Ordered By: Abrahan Bowen on 08-03-2022 Epithelial cells Auto (Urine sed) [#/Area] 3-4 [HPF] 0-2 [facility] Automated erythrocytes count in urine sediment (number/area)Ordered By: Abrahan Bowen on 08-03-2022 RBC Auto (Urine sed) [#/Area] 1-2 [HPF] 0-4 [facility] Automated leukocytes count i n urine sediment (number/area)Ordered By: Abrahan Bowen on 08-03-2022 WBC Auto (Urine sed) [#/Area] 1-2 [HPF] 0-4 [facility] Bilirubin Auto test strip Ql (U)Ordered By: Abrahan Bowen on 08-03-2022 Bilirubin Ql (U) Negative Negative [facility] HCG ( test) IA.rapi d Ql (U)Ordered By: Abrahan Bowen on 08-03-2022 HCG ( test) Ql (U) Negative [facility] Ketones Auto test strip (U) [Mass/Vol]Ordered By: Abrahan Bowen on 08-03-2022 Ketones (U) [Mass/Vol] Negative Negative [facility] - Microbiology an d Antimicrobial susceptibilityOrdered By: Abrahan Bowen on 08-03-2022 C. trachomatis DNA HAILEY+probe Ql (Unsp spec) Positive Negative [facility] N. gonorrhoeae DNA HAILEY+probe Ql (Unsp spec) Negative Negative [facility] Comment on above: Performed at: =[address] [id number] Director: Fina Valdivia MD, Phone: [phone] Protein Auto test strip (U) [Mass/Vol]Ordered By: Abrahan Bowen on 08-03-2022 Protein (U) [Mass/Vol] Negative Negative [facility] Urine appearanceOrdered By: Abrahan Bowen on 08-03-2022 Appearance (U) Clear Clear [facility] Urine bacteria detection by automated methodOrdered By: Abrahan Bowen on 08-03-2022 Bacteria Auto Ql (U) None seen None Seen [facility] Urine colorOrdered By: Sal Bowen on 08-03-2022 Color (U) Yellow Yellow [facility] Urine glucose measurement by automated test strip (mass/volume)Ordered By: Abrahan Bowen on 08-03-2022 Glucose Auto test strip (U) [Mass/Vol] Normal mg/dL Normal [facility] Urine hemoglobin detection b y automated test stripOrdered By: Abrahan Bowen on 08-03-2022 Hemoglobin Auto test strip Ql (U) Trace Negative [facility] Urine leukocyte esterase det ection by automated test stripOrdered By: Abrahan Bowen on 08-03-2022 Leukocyte esterase Auto test strip Ql (U) Negative Negative [facility] Urine nitrite detection by a utomated test stripOrdered By: Abrahan Bowen on 08-03-2022 Nitrite Auto test strip Ql (U) Negative Negative [facility] Urobilinogen Auto test strip (U) [Mass/Vol]Ordered By: Abrahan Bowen on 08-03-2022 Urobilinogen (U) [Mass/Vol] Normal mg/dL Normal [facility] pH Auto test strip (U)Ordere d By: Abrahan Bowen on 08-03-2022 pH (U) 1.025 [pH] 1.001-1.030 [facility] pH (U) 6.0 [pH] 5.0-9.0 [facility] COVID-19 SOFIAOrdered By: Samuel Dan on 03-17-2022 SARS-CoV+SARS-CoV-2 (COVID-19) Ag IA.rapid Ql (Resp) Negative Negative [facility] Comment on above: This is a duplicate Kenyatta SARS Antigen (ALETHEA) result to be used for statistical tracking purpose only. No Panel InformationOrdered By: Ryan Dan on 03-17-2022 SARS Antigen (LFIA) [facility] XR Chest 2 Views*on 10-18-19 22 XR Chest 2 Views* HISTORY: Cough COMPARISON: None available TECHNIQUE: Frontal and lateral views of the chest FINDINGS: The cardiomediastinal silhouette is within normal limits. No pneumothorax, pleural effusion, or consolidation. Bones of the thorax appear intact. IMPRESSION: No radiographic evidence of acute intrathoracic process. Report reported and signed by Kurt Jordan on 10/18/2021 1629 Normal [facility] XR Spine Lumbar 4+ Views*on 10-02-2021 XR Spine Lumbar 4+ Views* CLINICAL HISTO RY: Low back pain and stiffness radiating to the left side since 09/27/2021 without specific injury. COMPARISON: None available. TECHNIQUE: AP, lateral, oblique, and coned-down AP and lateral radiographs of the lumbar spine were obtained. FINDINGS: Borderline disc space narrowing and minimal hypertrophic facet changes are present at the L5-S1 level. There is no compression, fracture, significant subluxation, other significant disc space narrowing or degenerative changes elsewhere, worrisome bone destruction, paraspinous soft tissue abnormalities, or other findings of concern identified. An IUD is noted within the central pelvis. IMPRESSION: MINIMAL DEGENERATIVE CHANGES LUMBOSACRAL JUNCTION. OTHERWISE, NEGATIVE LUMBOSACRAL SPINE. Report reported and signed by Brennon Rodriguez on 10/02/2021 1413 Normal [facility] INFLUENZA A AND B AGon 08-13 INFLUANEGH SEE BELOW Normal [facility] Comment on above: Result Comment: Nega tive for Flu A protein angiten. Infection due to Flu A cannot be ruled out. Flu A angiten in the sample may be below the detection limit of the test. Performed By: #### I NFLUAB #### [facility] [address] [place] [address] Ayo Alvarez INFLUBNEGH SEE BELOW Normal [facility] Comment on above: Result Comment: Nega tive for Flu B protein antigen. Infection due to Flu B cannot be ruled out. Flu B antigen in the sample may be below the detection limit of the test. Performed By: #### I NFLUAB #### [facility] [address] [place] [address] Ayo Alvarez INFLUENZA A AG Negative Normal NEGATIVE SEE COMMENT [facility] Comment on above: Performed By: #### I NFLUAB #### [facility] [address] [place] [address] Ayo Alvarez INFLUENZA B AG Negative Normal NEGATIVE SEE COMMENT [facility] Comment on above: Performed By: #### I NFLUAB #### [facility] [address] [place] [address] Ayo Alvarez INTERNAL CONTROLS Within Normal Limits Normal Wi thin Normal Limits [facility] Comment on above: Performed By: #### I NFLUAB #### [facility] [address] [place] [address] Ayo Alvarez STREPT SCREENon 08-13-2019 STREP SCREEN A Positive Normal NEGATIVE [facility] Comment on above: Performed By: #### S SCRN #### [facility] [address] [place] [address] Ayo Alvarez Vital Signs Date Time Vital Sign Value Performing Clinician Facility 07-14-2024 11:43-0500 Body mass index (BMI) [Ratio] 35.4 kg/m2 Didier Lazo CLIENT CARE MANAGER Work Phone: [facility] 07-14-2024 11:43-0500 Body temperature 98.01 [degF] Didier Lazo CLIENT CARE MANAGER Work Phone: [facility] 07-14-2024 11:43-0500 Body weight 102.51 kg Didier Lazo CLIENT CARE MANAGER Work Phone: [facility] 07-14-2024 11:43-0500 Diastolic blood pressure 72 mm[Hg] Didier Lazo CLIENT CARE MANAGER Work Phone: [facility] 07-14-2024 11:43-0500 Heart rate 88 /min Didier Lazo CLIENT CARE MANAGER Work Phone: [facility] 07-14-2024 11:43-0500 SaO2% (BldA) [Mass fraction] 98 % Didier Lazo CLIENT CARE MANAGER Work Phone: [facility] 07-14-2024 11:43-0500 Systolic blood pressure 118 mm[Hg] Didier Lazo CLIENT CARE MANAGER Work Phone: [facility] 11-23-2023 23:28-0400 Heart rate 89 /min CLIENT CARE MANAGER-C Janet Luby Work Phone: [facility] 11-23-2023 23:28-0400 Respiratory rate 20 /min CLIENT CARE MANAGER-C Janet Luby Work Phone: [facility] 11-23-2023 22:15-0400 Body height 170.18 cm CLIENT CARE MANAGER-C Janet Luby Work Phone: [facility] 11-23-2023 22:15-0400 Body temperature 99 [degF] CLIENT CARE MANAGER-C Janet Luby Work Phone: [facility] 11-23-2023 22:15-0400 Body weight 103.5 kg CLIENT CARE MANAGER-C Janet Luby Work Phone: [facility] 11-23-2023 22:15-0400 Diastolic blood pressure 81 mm[Hg] CLIENT CARE MANAGER-C Janet Luby Work Phone: [facility] 11-23-2023 22:15-0400 SaO2% (BldA) [Mass fraction] 99 % CLIENT CARE MANAGER-C Janet Luby Work Phone: [facility] 11-23-2023 22:15-0400 Systolic blood pressure 160 mm[Hg] CLIENT CARE MANAGER-C Janet Luby Work Phone: 7(321)[phone] [address] 11-08-2023 16:58-0500 Body height 170.18 cm CLIENT CARE MANAGER-C Janet Luby Work Phone: [facility] 11-08-2023 16:58-0500 Body temperature 98.4 [degF] CLIENT CARE MANAGER-C Janet Luby Work Phone: [facility] 11-08-2023 16:58-0500 Body weight 99 kg CLIENT CARE MANAGER-C Janet Luby Work Phone: [facility] 11-08-2023 16:58-0500 Diastolic blood pressure 79 mm[Hg] CLIENT CARE MANAGER-C Janet Luby Work Phone: [facility] 11-08-2023 16:58-0500 Heart rate 96 /min CLIENT CARE MANAGER-C Janet Luby Work Phone: [facility] 11-08-2023 16:58-0500 Respiratory rate 16 /min CLIENT CARE MANAGER-C Janet Luby Work Phone: [facility] 11-08-2023 16:58-0500 SaO2% (BldA) [Mass fraction] 96 % CLIENT CARE MANAGER-C Janet Luby Work Phone: [facility] 11-08-2023 16:58-0500 Systolic blood pressure 127 mm[Hg] CLIENT CARE MANAGER-C Janet Luby Work Phone: [facility] 09-03-2023 10:37-0500 Blood Pressure Location Abad Vasquez [facility] 09-03-2023 10:37-0500 Body temperature 98.06 [degF] Abad Vasquez [facility] 09-03-2023 10:37-0500 Diastolic blood pressure 86 mm[Hg] Abad Vasquez [facility] 09-03-2023 10:37-0500 Heart rate 100 /min Abad Vasquez [facility] 09-03-2023 10:37-0500 SaO2% (BldA) [Mass fraction] 97 % Abad Vasquez [facility] 09-03-2023 10:37-0500 Systolic blood pressure 132 mm[Hg] Abad Vasquez [facility] 04-01-2023 23:40-0400 Diastolic blood pressure 95 mm[Hg] CLIENT CARE MANAGER-C Janet Luby Work Phone: [facility] 04-01-2023 23:40-0400 Heart rate 60 /min CLIENT CARE MANAGER-C Janet Luby Work Phone: [facility] 04-01-2023 23:40-0400 Respiratory rate 18 /min CLIENT CARE MANAGER-C Janet Luby Work Phone: [facility] 04-01-2023 23:40-0400 SaO2% (BldA) [Mass fraction] 98 % CLIENT CARE MANAGER-C Janet Luby Work Phone: [facility] 04-01-2023 23:40-0400 Systolic blood pressure 153 mm[Hg] CLIENT CARE MANAGER-C Janet Luby Work Phone: [facility] 04-01-2023 20:36-0400 Body height 170.18 cm CLIENT CARE MANAGER-C Janet Luby Work Phone: [facility] 04-01-2023 20:36-0400 Body temperature 98 [degF] CLIENT CARE MANAGER-C Janet Luby Work Phone: [facility] 04-01-2023 20:36-0400 Body weight 107.3 kg CLIENT CARE MANAGER-C Janet Luby Work Phone: [facility] 02-03-2023 13:40-0400 Body height 170.18 cm Kathrin Evans Other [email or web address] Other 02-03-2023 13:40-0400 Body mass index (BMI) [Ratio] 34.92 kg/m2 Kathrin Evans Other [email or web address] Other 02-03-2023 13:40-0400 Body weight 101.15 kg Kathrinmeena Evans Other [email or web address] Other 02-03-2023 13:40-0400 Diastolic blood pressure 84 mm[Hg] Kathrin Evans Other [email or web address] Other 02-03-2023 13:40-0400 Systolic blood pressure 122 mm[Hg] Kathrin Evans Other [email or web address] Other 01-02-2023 10:40-0400 Body height 170.18 cm Kathrin Evans Other [email or web address] Other 01-02-2023 10:40-0400 Body mass index (BMI) [Ratio] 35.02 kg/m2 Kathrin Evans Other [email or web address] Other 01-02-2023 10:40-0400 Body weight 101.42 kg Kathrinmeena Evans Other [email or web address] Other 01-02-2023 10:40-0400 Diastolic blood pressure 76 mm[Hg] Kathrin Evans Other [email or web address] Other 01-02-2023 10:40-0400 Respiratory rate 16 /min [employer] Other [email or web address] Other 01-02-2023 10:40-0400 SaO2% (BldA) [Mass fraction] 98 % Kathrin Evans Other [email or web address] Other 01-02-2023 10:40-0400 Systolic blood pressure 115 mm[Hg] Kathrin Evans Other [email or web address] Other 11-11-2022 09:40-0500 Body height 170.18 cm Hayder Wilson Other [email or web address] Other 11-11-2022 09:40-0500 Body mass index (BMI) [Ratio] 33.67 kg/m2 Hayder Wilson Other [email or web address] Other 11-11-2022 09:40-0500 Body weight 97.52 kg Hayder Wilson Other [email or web address] Other 11-11-2022 09:40-0500 Diastolic blood pressure 78 mm[Hg] Hayder Wilson Other [email or web address] Other 11-11-2022 09:40-0500 Systolic blood pressure 112 mm[Hg] Hayder Wilson Other [email or web address] Other 10-16-2022 12:30-0500 Body height 170.18 cm Hayder Wilson Other [email or web address] Other 10-16-2022 12:30-0500 Body mass index (BMI) [Ratio] 33.67 kg/m2 Hayder Wilson Other [email or web address] Other 10-16-2022 12:30-0500 Body weight 97.52 kg Hayder Wilson Other [email or web address] Other 09-18-2022 10:20-0500 Body height 170.18 cm Kathrin Evans Other [email or web address] Other 08-23-2022 06:00-0500 Body weight 98.3 kg CLIENT CARE MANAGEROliviaC Janet Lucas Work Phone: [facility] 08-23-2022 04:20-0500 Body temperature 97.6 [degF] CLIENT CARE MANAGEROliviaC Janet Lucas Work Phone: [facility] 08-23-2022 04:20-0500 Diastolic blood pressure 65 mm[Hg] CLIENT CARE MANAGER-C Jante Luby Work Phone: [facility] 08-23-2022 04:20-0500 Heart rate 63 /min CLIENT CARE MANAGER-C Janet Luby Work Phone: 2(640)[phone] [place] [address] 08-23-2022 04:20-0500 Respiratory rate 18 /min CLIENT CARE MANAGER-C Janet Luby Work Phone: 4(510)[phone] [place] [address] 08-23-2022 04:20-0500 SaO2% (BldA) [Mass fraction] 99 % CLIENT CARE MANAGER-C Janet Luby Work Phone: [facility] 08-23-2022 04:20-0500 Systolic blood pressure 115 mm[Hg] CLIENT CARE MANAGER-C Janet Luby Work Phone: 4(063)199-112792 [place] [address] 08-22-2022 08:25-0500 Inhaled oxygen flow rate 8 L/min CLIENT CARE MANAGER-C Janet Luby Work Phone: 3(538)[phone] [place] [address] 08-22-2022 07:40-0500 Body height 170.18 cm CLIENT CARE MANAGER-C Janet Luby Work Phone: 9(754)[phone] [address] 08-22-2022 07:40-0500 Body mass index (BMI) [Ratio] 33.8 kg/m2 CLIENT CARE MANAGER-C Janet Luby Work Phone: [facility] 08-19-2022 02:19-0500 Diastolic blood pressure 80 mm[Hg] CLIENT CARE MANAGER-C Janet Luby Work Phone: 2(349)376-758392 [place] [address] 08-19-2022 02:19-0500 Heart rate 84 /min CLIENT CARE MANAGER-C Janet Luby Work Phone: [facility] 08-19-2022 02:19-0500 Respiratory rate 17 /min CLIENT CARE MANAGER-C Janet Luby Work Phone: [facility] 08-19-2022 02:19-0500 SaO2% (BldA) [Mass fraction] 99 % CLIENT CARE MANAGER-C Janet Luby Work Phone: 9(723)990-951292 [place] [address] 08-19-2022 02:19-0500 Systolic blood pressure 119 mm[Hg] CLIENT CARE MANAGER-C Janet Luby Work Phone: 0(274)[phone] [place] [address] 08-19-2022 00:57-0500 Body height 170.18 cm CLIENT CARE MANAGER-C Janet Luby Work Phone: 6(232)626-517492 [place] [address] 08-19-2022 00:57-0500 Body temperature 97.1 [degF] CLIENT CARE MANAGER-C Janet Luby Work Phone: 2(214)970-171192 [place] [address] 08-19-2022 00:57-0500 Body weight 97.97 kg CLIENT CARE MANAGER-C Janet Luby Work Phone: 3(277)610-858372 [place] [address] 08-03-2022 20:55-0500 Body temperature 98.5 [degF] CLIENT CARE MANAGER-C Janet Luby Work Phone: 9(199)063-540272 [place] [address] 08-03-2022 20:55-0500 Diastolic blood pressure 70 mm[Hg] CLIENT CARE MANAGER-C Janet Luby Work Phone: 3(382)416-959872 [place] [address] 08-03-2022 20:55-0500 Heart rate 72 /min CLIENT CARE MANAGER-C Janet Luby Work Phone: 7(512)934-680772 [place] [address] 08-03-2022 20:55-0500 Respiratory rate 18 /min CLIENT CARE MANAGER-C Janet Luby Work Phone: 2(617)606-766192 [place] [address] 08-03-2022 20:55-0500 SaO2% (BldA) [Mass fraction] 99 % CLIENT CARE MANAGER-C Janet Luby Work Phone: 1(450)057-062192 [place] [address] 08-03-2022 20:55-0500 Systolic blood pressure 148 mm[Hg] CLIENT CARE MANAGER-C Janet Luby Work Phone: 7(262)[phone] [place] [address] 08-03-2022 18:41-0500 Body height 170.18 cm CLIENT CARE MANAGER-C Janet Luby Work Phone: 5(263)204-874692 [place] [address] 08-03-2022 18:41-0500 Body weight 98.42 kg CLIENT CARE MANAGER-C Janet Luby Work Phone: [facility] 05-27-2022 16:56-0400 Body height 170.18 cm CLIENT CARE MANAGER-C Janet Lucas Work Phone: [facility] 05-27-2022 16:56-0400 Body temperature 98.6 [degF] CLIENT CARE MANAGER-C Janet Lucas Work Phone: 8(321)016-386692 [place] [address] 05-27-2022 16:56-0400 Body weight 93 kg CLIENT CARE MANAGER-C Janet Lucas Work Phone: 3(129)787-287021 [address] 05-27-2022 16:56-0400 Diastolic blood pressure 69 mm[Hg] CLIENT CARE MANAGER-C Janet Lucas Work Phone: 2(122)538-326721 [address] 05-27-2022 16:56-0400 Heart rate 88 /min CLIENT CARE MANAGER-C Janet Lucas Work Phone: 8(850)082-515621 [address] 05-27-2022 16:56-0400 Respiratory rate 16 /min CLIENT CARE MANAGER-C Janet Lucas Work Phone: 9(093)041-217792 [place] [address] 05-27-2022 16:56-0400 SaO2% (BldA) [Mass fraction] 99 % CLIENT CARE MANAGER-C Janet Lucas Work Phone: 2(706)211-241792 [place] [address] 05-27-2022 16:56-0400 Systolic blood pressure 141 mm[Hg] CLIENT CARE MANAGER-C Janet Lucas Work Phone: 3(114)722-317692 [place] [address] 05-29-2019 08:40-0400 Body Temperature 97.59 [degF] [employer] 05-29-2019 08:40-0400 BP Diastolic 90 mm[Hg] [facility] [place] 05-29-2019 08:40-0400 BP Systolic 131 mm[Hg] [facility] [place] 05-29-2019 08:40-0400 Pulse (Heart Rate) 74 /min [place] 05-29-2019 08:40-0400 Respiratory Rate 14 /min [facility] [facility] [place] 05-28-2019 10:43-0400 BMI (Body Mass Index) 36.34 kg/m2 [facility], [place] 05-28-2019 10:43-0400 Body weight 105.[address] [facility] , [place] 05-28-2019 10:43-0400 Height 170.[address] [facility] , [place] Encounters Encounter Date Encounter Type Care Provider Facility Start: 08-10-2024 End: 08-10-2024 Telephone encounter Janet Lucas CLIENT CARE MANAGER Work Phone: [facility] Start: 07-29-2024 End: 07-29-2024 Emergency department patient visit Janet Lucas Facility:[facility] Start: 07-14-2024 End: 07-14-2024 ambulatory DIDIER LAZO Not Available Start: 07-14-2024 End: 07-14-2024 Office outpatient visit 15 minutes Didier Lazo CLIENT CARE MANAGER Work Phone: [facility] Comment on above: Nausea (Primary Dx); Diarrhea, unspecified type; Food poisoning Start: 04-21-2024 End: 04-21-2024 ambulatory EUGENE PELAYO Not Available Start: 02-25-2024 End: 02-25-2024 ambulatory CAMERON PAGAN Not Available Start: 01-05-2024 End: 01-05-2024 ambulatory VENITA DYE Not Available Start: 11-23-2023 End: 11-24-2023 Emergency department patient visit CLIENT CARE MANAGER-Jennifer Lucas Work Phone: [facility] Work Phone: Start: 11-08-2023 End: 11-08-2023 Emergency department patient visit CLIENT CARE MANAGER-Jennifer Janet Nina Work Phone: [facility] Work Phone: Start: 11-02-2023 End: 11-02-2023 ambulatory YOVANI MCDANIEL Not Available Start: 09-03-2023 End: 09-04-2023 ambulatory Abad Vasquez Facility:[facility] Start: 09-03-2023 End: 09-03-2023 Patient encounter procedure Abad Vasquez [facility] Start: 08-10-2023 End: 08-10-2023 ambulatory MYESHA BENNETT Not Available Start: 04-01-2023 End: 04-02-2023 Emergency department patient visit CLIENT CARE MANAGER-Jennifer Lucas Work Phone: [facility] Work Phone: Start: 02-16-2023 End: 02-16-2023 ambulatory Kathrin Evans Other [facility] [employer] Other Start: 02-16-2023 Telephone encounter Kathrin Evans [facility] Start: 02-03-2023 End: 02-03-2023 ambulatory Kathrin Evans Other [facility] [employer] Other Start: 02-03-2023 Office outpatient vi sit 25 minutes Kathrin Evans [facility] Start: 01-28-2023 End: 01-28-2023 Patient encounter procedure CLIENT CARE MANAGER-Jennifer Lucas Work Phone: [facility] [place] Work Phone: Start: 01-26-2023 End: 01-26-2023 ambulatory Hayder Wilson Other [facility] [employer] Other Start: 01-26-2023 Telephone encounter Hayder Wilson [facility] Start: 01-02-2023 End: 01-02-2023 ambulatory Kathrin Evans Other [facility] [employer] Other Start: 01-02-2023 Office outpatient vi sit 15 minutes Kathrin Evans [facility] Start: 12-22-2022 (Procedure) Teo Vargas [facility] Start: 12-22-2022 End: 12-22-2022 ambulatory Silas Vargas Other [facility] [employer] Other Start: 12-03-2022 End: 12-03-2022 ambulatory Silas Vargas Other [email or web address] Other Start: 12-03-2022 Telephone encounter Silas Vargas [employer] Assistant Start: 12-02-2022 End: 12-02-2022 ambulatory Silas Vargas Other [email or web address] Other Start: 12-02-2022 Office outpatient vi sit 25 minutes Silas Vargas [facility] [place] Start: 11-11-2022 End: 11-11-2022 ambulatory Hayder Wilson Other [email or web address] Other Start: 11-11-2022 Postop follow up vis it related to original px Hayder Wilson [facility] Start: 10-21-2022 End: 10-21-2022 ambulatory Hayder Wilson Other [email or web address] Other Start: 10-21-2022 Telephone encounter Hayderwilder Wilson [facility] Start: 10-16-2022 End: 10-16-2022 ambulatory Hayder Wilson Other [email or web address] Other Start: 10-16-2022 Postop follow up vis it related to original px Hayder Wilson [facility] Start: 09-18-2022 End: 09-18-2022 ambulatory Kathrin Evans Other [email or web address] Other Start: 09-18-2022 Postop follow up vis it related to original px Kathrin Evans [facility] Start: 09-09-2022 End: 09-09-2022 ambulatory Hayder Wilson Other [email or web address] Other Start: 09-09-2022 Telephone encounter Hayder Wilson [facility] Start: 08-22-2022 End: 08-23-2022 Admission to same day surgery center CLIENT CARE MANAGER-C Janet Lucas Work Phone: [facility] [place] Start: 08-22-2022 End: 08-23-2022 ambulatory CLIENT CARE MANAGER-C Janet Lucas Work Phone: [facility] Work Phone: Start: 08-20-2022 End: 08-20-2022 ambulatory CLIENT CARE MANAGER-C Janet Lucas Work Phone: [facility] Work Phone: Start: 08-20-2022 End: 08-20-2022 Patient encounter procedure CLIENT CARE MANAGER-C Janet Lucas Work Phone: [facility]oy[facility]Myyhkj[facility] Testing Start: 08-19-2022 End: 08-19-2022 Emergency department patient visit CLIENT CARE MANAGER-C Janet Lucas Work Phone: [facility] Start: 08-13-2022 End: 08-13-2022 ambulatory CLIENT CARE MANAGER-C Janet Lucas Work Phone: [facility] Work Phone: Start: 08-13-2022 End: 08-13-2022 Patient encounter procedure CLIENT CARE MANAGER-C Janet Lucas Work Phone: [facility] Mgn-Pff-Zewprxvl Testing Start: 08-03-2022 End: 08-03-2022 Emergency department patient visit CLIENT CARE MANAGER-C Janet Lucas Work Phone: [facility] Start: 07-29-2022 End: 07-29-2022 ambulatory CLIENT CARE MANAGER-C Janet Lucas Work Phone: [facility] Work Phone: Start: 07-29-2022 End: 07-29-2022 Patient encounter procedure CLIENT CARE MANAGER-C Janet Lucas Work Phone: [facility] [place] Start: 07-22-2022 End: 07-22-2022 ambulatory Silas Vargas Other [email or web address] Other Start: 07-22-2022 Office outpatient ne w 45 minutes Silas Vargas [facility] [place] Start: 05-27-2022 End: 05-27-2022 Emergency department patient visit CLIENT CARE MANAGER-Jennifer Lucas Work Phone: [facility] Start: 03-17-2022 End: 03-17-2022 Patient encounter procedure CLIENT CARE MANAGER-Jennifer Lucas Work Phone: [facility] Start: 08-13-2019 End: 08-13-2019 Patient encounter procedure LEANNA Victor Hugo MALACHI Facility: Start: 05-28-2019 Patient encounter procedure STAJohnathon Admitting Comment on above: N/A Start: 05-28-2019 End: 05-29-2019 Evaluation and management of inpatient MARK LAYTON [facility] Procedures Date Procedure Procedure Detail Performing Clinician Start: 11-23-2023 Plain chest X-ray CLIENT CARE MANAGER-Jennifer Lucas Work Phone: Start: 11-23-2023 SARS-CoV-2, Influenz a & RSV (PCR) CLIENT CARE MANAGER-C Janet Lucas Work Phone: Start: 11-08-2023 SARS-CoV-2, Influenz a & RSV (PCR) CLIENT CARE MANAGER-C Janet Lucas Work Phone: Start: 11-08-2023 Streptococcus pyogen es antigen assay CLIENT CARE MANAGER-Jennifer Lucas Work Phone: Start: 04-14-2023 Microscopic observat ion [Identifier] in Cervix by Cyto stain Didier Lazo CLIENT CARE MANAGER Work Phone: Start: 01-28-2023 MRI of lumbar spine with contrast CLIENT CARE MANAGER-Jennifer Lucas Work Phone: Start: 08-22-2022 Excision of lumbar intervertebral disc CLIENT CARE MANAGER-Jennifer Lucas Work Phone: Start: 08-22-2022 X-ray of lumbar spin e, single view CLIENT CARE MANAGER-Jennifer Lucas Work Phone: Start: 07-29-2022 Pelvis X-ray CLIENT CARE MANAGER-Jennifer Lucas Work Phone: Start: 07-29-2022 X-ray of lumbar spin e, six views including bending views CLIENT CARE MANAGER-Jennifer Lucas Work Phone: Start: 05-27-2022 X-ray of lumbar spin e, four or more views CLIENT CARE MANAGER-C Janet Lucas Work Phone: Start: 05-29-2019 DISCHARGE PATIENT LATONYA LAYTON Start: 05-28-2019 IP CONSULT TO HISTOR Y AND PHYSICAL MARKGEOFFREY QUINONESURTI Start: 05-28-2019 DIET GENERAL MARKGEOFFREY QUINONESURTI Start: 05-28-2019 FULL CODE MARKGEOFFREY QUINONESURTI Start: 05-28-2019 MONITOR MARK QUINONESURTI Start: 05-28-2019 TOBACCO CESSATION EDUCATION MARK INDURTI Start: 05-28-2019 VITAL SIGNS MARK INDURTI Start: 05-28-2019 PATIENT STATUS (DIRECT) MARKGEOFFREY QUINONESURTI Back structure, excl uding neck (body structure) Abad Vasquez Bacteria identificat ion test CLIENT CARE MANAGER-C Janet Lucas Work Phone: Mycology culture CLIENT CARE MANAGER-C Janet Lucas Work Phone: SARS Antigen (LFIA) CLIENT CARE MANAGER-C Stephany Lucas Work Phone: SARS Antigen (LFIA) CLIENT CARE MANAGER-C Stephany Lucas Work Phone: Trichomonas vaginali s detection CLIENT CARE MANAGER-C Janet Lucas Work Phone: Plan of Treatment Date Care Activity Detail Author Start: 04-14-2028 Screening for malign ant neoplasm of cervix [facility] Start: 04-14-2026 Screening for malign ant neoplasm of cervix Pap Smear [facility] Start: 05-08-2024 Influenza vaccination Influenz a Vaccine (#1) [facility] Start: 04-01-2023 X-ray of lumbar spin e, two or three views XR lumbar spine 2-3V* [facility] Start: 04-01-2023 XR Lumbar spine 2 or 3 Views [facility] Start: 08-23-2022 [facility] Start: 08-22-2022 Physical therapy procedure [facility] Start: 08-22-2022 Referral to occupati onal therapist [facility] Start: 08-03-2022 [facility] Start: 05-08-2019 Influenza vaccination [facility] [place] Bacteria identified in Genital specimen by Aerobe culture [facility] Work Phone: Patient Education [facility] Work Phone: Patient referral [facility] Work Phone: Immunizations Immunization Date Immunization Notes Care Provider Marga almazan 04-08-2002 measles, mumps and rubella virus vaccine Abad Pedro [facility] 08-24-2000 influenza virus vaccine, unspecified formulation Abad Pedro [facility] 08-24-2000 influenza, seasonal, injectable Didier Olaf CLIENT CARE MANAGER Work Phone: [facility] 08-07-1998 influenza virus vaccine, unspecified formulation Abad Pedro [facility] 08-07-1998 influenza, seasonal, injectable Didier Olaf CLIENT CARE MANAGER Work Phone: [facility] 12-15-1994 diphtheria, tetanus toxoids and acellular pertussis vaccine, unspecified formulation Didier Olaf CLIENT CARE MANAGER Work Phone: [facility] 12-15-1994 DTaP, unspecified formulation Abad Pedro [facility] 12-15-1994 poliovirus vaccine, inactivated Didier Olaf CLIENT CARE MANAGER Work Phone: [facility] 12-15-1994 poliovirus vaccine, unspecified formulation Abad Pedro [facility] 12-16-1991 diphtheria, tetanus toxoids and acellular pertussis vaccine, unspecified formulation Didier Olaf CLIENT CARE MANAGER Work Phone: [facility] 12-16-1991 DTaP, unspecified formulation Abad Pedro [facility] 12-16-1991 poliovirus vaccine, inactivated Didier Olaf CLIENT CARE MANAGER Work Phone: [facility] 12-16-1991 poliovirus vaccine, unspecified formulation Abad Pedro [facility] 09-05-1991 haemophilus influenzae type b vaccine, conjugate unspecified formulation Didier Lazo CLIENT CARE MANAGER Work Phone: [facility] 09-05-1991 Hib, unspecified formulation Abad Pedro [facility] 08-09-1991 measles, mumps and rubella virus vaccine Abad Pedro [facility] 05-27-1991 haemophilus influenzae type b vaccine, conjugate unspecified formulation Didier Lazo CLIENT CARE MANAGER Work Phone: [facility] 05-27-1991 Hib, unspecified formulation Abad Pedro [facility] 1990 diphtheria, tetanus toxoids and pertussis vaccine Didier Lazo CLIENT CARE MANAGER Work Phone: [facility] 1990 haemophilus influenzae type b vaccine, conjugate unspecified formulation Didier Lazo CLIENT CARE MANAGER Work Phone: [facility] 1990 Hib, unspecified formulation Abad Pedro [facility] 1990 diphtheria, tetanus toxoids and pertussis vaccine Didier Lazo CLIENT CARE MANAGER Work Phone: [facility] 1990 poliovirus vaccine, inactivated Didier Lazo CLIENT CARE MANAGER Work Phone: [facility] 1990 poliovirus vaccine, unspecified formulation Abad Pedro [facility] 1990 diphtheria, tetanus toxoids and pertussis vaccine Didier Lazo CLIENT CARE MANAGER Work Phone: [facility] 1990 poliovirus vaccine, inactivated Didier Olaf CLIENT CARE MANAGER Work Phone: [facility] 1990 poliovirus vaccine, unspecified formulation Abad Pedro [facility] NEGATED: Highlighted row has not occurred!09-03-2023 influenza virus vaccine, unspecified formulation Abad Thompsonpsey [facility] NEGATED: Highlighted row has not occurred!09-03-2023 SARS-CoV-2 mRNA (tozinameran 5y-11y) vaccine Abad Thompsonpsey [facility] Payers Date Payer Category Payer Self-pay [id number] 2022 Medicaid [facility] [id number] 2022 Medicaid [id number] 2018 Unknown [employer] xxxxxxxxxxx 2018-Present [phone] [address] [place] [address] xxxxxxxxxxx [id number] 1990 Unknown [id number] 1990 Unknown [id number] 1990 Unknown [id number] 1990 Unknown [id number] 1990 Unknown [id number] 1990 Unknown [id number] 1990 Unknown [id number] 1990 Unknown [id number] 1990 Unknown [id number] 1959 Unknown [id number] Medicaid [id number] Unknown [id number] Unknown [id number] Unknown [id number] Social History Date Type Detail Facility Start: 05-28-2019 End: 02-03-2023 Tobacco smoking status [facility] Current every day smoker [place], [place] History of tobacco use Cigarette Smoker [place] Start: 05-28-2019 End: 02-03-2023 Cigarettes smoked current (pack per day) - Reported [facility] Start: 1990 Sex Assigned At Not on file M [place], [place] Start: 05-27-2022 End: 11-23-2023 Tobacco smoking status DCIS Smoker (finding) [facility] Start: 1990 Sex Assigned At Female F [facility] Start: 02-03-2023 End: 04-14-2023 Sex Assigned At [facility] Start: 09-03-2023 Tobacco smoking status Heavy tobacco smoker (finding) [facility] Tobacco smoking status Never [facility] Start: 02-03-2023 Tobacco use and exposure Smokeless tobacco non-user [facility] Start: 07-14-2024 Alcoholic beverage intake Current drinker of alcohol (finding) [facility] Within the last year , have you been afraid of your partner or ex-partner? No [facility] Are you now , , , , never or living with a partner? Never [facility] How often to you hav e a drink containing alcohol? Monthly or less [facility] How many standard drinks containing alcohol do you have on a typical day? 1 or 2 [facility] How often do you hav e 6 or more drinks on 1 occasion? Less than monthly [facility] How hard is it for you to pay for the very basics like food, housing, medical care, and heating Very hard [facility] Do you feel stress - tense, restless, nervous, or anxious, or unable to sleep at night because your mind is troubled all the time - these days [OSQ] Rather much [facility] (I/We) worried whether (my/our) food would run out before (I/we) got money to buy more. Often true [facility] The food that (I/we) bought just didn't last, and (I/we) didn't have money to get more. Sometimes true [facility] Start: 02-17-2023 Alcohol Comment 3-4 drinks, 2- 3 times. caffeine intake: 3-4 cups per day. [facility] Start: 11-19-2022 Gender identity Identifies as female gender (finding) [facility] NEGATED: Highlighted row [facility] Goals Date Patient Goal Desired Activity /State Functional Status Date Assessment Result Facility 09-03-2023 Functional Status N/A [facility] 08-23-2022 Functional status Patient at Baseline [facility] Work Phone: Mental Status Date Assessment Result Facility 08-23-2022 Cognitive function Cognitive Sta tus Patient at Baseline [facility] Work Phone: Clinical Notes 07-22-2022 to 08-10-2024 Telephone Encounter - Bibi Singh - 08/10/2024 9:55 AM ESTTelephone Encounter - Bibi Singh - 08/10/2024 9:55 AM ESTLindsanel Kan Lazo NP - 07/14/2024 11:40 AM EST Note Date & Type Note Facility 08-10-2024 Telephone encount er Note Called at 9:50 to cancel 10:00 appointment [facility] 08-10-2024 Miscellaneous Notes Formattin g of this note might be different from the original. Called at 9:50 to cancel 10:00 appointment documented in this encounter [facility] 07-14-2024 History of Presen t illness Narrative Images from the original note were not included. [address] , [address] [facility], [address] P: [phone] F: [phone] HPI Historian of HPI: patient Darrell Musa is a 34 y.o. female who presents today to the Urgent Care with the following complaints and denials which have been present for 2 day(s) pt states she eat raw shrimp yesterday night that was not cooked. C/O Denies Symptom Comments [x] [] Abd Pain Location: lower midline [x] [] Nausea [x] [] Vomiting Diarrhea as well [x] [] Loss of appetite [] [x] Fever [] [x] Chills [] [x] Radiation of pain [x] [] OTC Medication use pepto bismol [] [x] PMHx of Abd issues Additional Comments: pt has taken pepto bismol OTC medication without relief ROS A complete system ROS was performed and negative aside from the pertinent positives noted in the HPI and PE. PHYSICAL EXAM Physical Exam Vitals reviewed. Constitutional: General: She is not in acute distress. Appearance: Normal appearance. HENT: Head: Normocephalic and atraumatic. Right Ear: Tympanic membrane, ear canal and external ear normal. Left Ear: Tympanic membrane, ear canal and external ear normal. Nose: Nose normal. Mouth/Throat: Mouth: Mucous membranes are moist. Pharynx: Oropharynx is clear. Eyes: Extraocular Movements: Extraocular movements intact. Conjunctiva/sclera: Conjunctivae normal. Pupils: Pupils are equal, round, and reactive to light. Cardiovascular: Rate and Rhythm: Normal rate and regular rhythm. Pulses: Normal pulses. Heart sounds: Normal heart sounds. Pulmonary: Effort: Pulmonary effort is normal. No respiratory distress. Breath sounds: Normal breath sounds. No wheezing, rhonchi or rales. Abdominal: General: Abdomen is flat. Bowel sounds are normal. There is no distension. Palpations: Abdomen is soft. There is no mass. Tenderness: There is no abdominal tenderness. There is no right CVA tenderness, left CVA tenderness, guarding or rebound. Hernia: No hernia is present. Musculoskeletal: General: Normal range of motion. Cervical back: Normal range of motion and neck supple. Skin: General: Skin is warm and dry. Capillary Refill: Capillary refill takes less than 2 seconds. Findings: No rash. Neurological: General: No focal deficit present. Mental Status: She is alert and oriented to person, place, and time. Psychiatric: Mood and Affect: Mood normal. Behavior: Behavior normal. Thought Content: Thought content normal. Judgment: Judgment normal. TREATMENT PLAN 1. Nausea (Primary) Patient presents today for complaints of food poisoning causing diarrhea and nausea. Exam is within normal limits and symptoms are improving. She needs a work note and is requesting medication for the nausea. - ondansetron (Zofran) 8 MG tablet; Take 1 tablet (8 mg) by mouth every 8 (eight) hours if needed for nausea or vomiting for up to 5 days Dispense: 15 tablet; Refill: 0 2. Diarrhea, unspecified type She reports she is able to drink clear liquids and keep them down. 3. Food poisoning Patient reports she ate raw shrimp before realizing it was uncooked. She has had diarrhea and nausea for past 1-2 days. She will need a work note. She is in no acute distress today and is non toxic in appearance. documented in this encounter [facility] 09-03-2023 Hospital Discharg e instructions Patient Education 09/03/2023 11:24:14 Cough, Adult Cough, Adult Coughing is a reflex that clears your throat and your airways (respiratory system). Coughing helps to heal and protect your lungs. It is normal to cough occasionally, but a cough that happens with other symptoms or lasts a long time may be a sign of a condition that needs treatment. An acute cough may only last 2 3 weeks, while a chronic cough may last 8 or more weeks. Coughing is commonly caused by: Infection of the respiratory systemby viruses or bacteria. Breathing in substances that irritate your lungs. Allergies. Asthma. Mucus that runs down the back of your throat (postnasal drip). Smoking. Acid backing up from the stomach into the esophagus (gastroesophageal reflux). Certain medicines. Chronic lung problems. Other medical conditions such as heart failure or a blood clot in the lung (pulmonary embolism). Follow these instructions at home: Medicines Take taia-vpm-evrqhrv and prescription medicines only as told by your health care provider. Talk with your health care provider before you take a cough suppressant medicine. Lifestyle Avoid cigarette smoke. Do not use any products that contain nicotine or tobacco, such as cigarettes, e-cigarettes, and chewing tobacco. If you need help quitting, ask your health care provider. Drink enough fluid to keep your urine pale yellow. Avoid caffeine. Do not drink alcohol if your health care provider tells you not to drink. General instructions Pay close attention to changes in your cough. Tell your health care provider about them. Always cover your mouth when you cough. Avoid things that make you cough, such as perfume, candles, cleaning products, or campfire or tobacco smoke. If the air is dry, use a cool mist vaporizer or humidifier in your bedroom or your home to help loosen secretions. If your cough is worse at night, try to sleep in a semi-upright position. Rest as needed. Keep all follow-up visits as told by your health care provider. This is important. Contact a health care provider if you: Have new symptoms. Cough up pus. Have a cough that does not get better after 2 3 weeks or gets worse. Cannot control your cough with cough suppressant medicines and you are losing sleep. Have pain that gets worse or pain that is not helped with medicine. Have a fever. Have unexplained weight loss. Have night sweats. Get help right away if: You cough up blood. You have difficulty breathing. Your heartbeat is very fast. These symptoms may represent a serious problem that is an emergency. Do not wait to see if the symptoms will go away. Get medical help right away. Call your local emergency services (911 in the [place] Do not drive yourself to the hospital. Summary Coughing is a reflex that clears your throat and your airways. It is normal to cough occasionally, but a cough that happens with other symptoms or lasts a long time may be a sign of a condition that needs treatment. Take sras-ssk-nxsprqc and prescription medicines only as told by your health care provider. Always cover your mouth when you cough. Contact a health care provider if you have new symptoms or a cough that does not get better after 2 3 weeks or gets worse. This information is not intended to replace advice given to you by your health care provider. Make sure you discuss any questions you have with your health care provider. Document Revised: 09/12/2019 Document Reviewed: 09/12/2019 [email or web address] Patient Education 2022 [employer]. Follow Up Care 09/03/2023 09:29:24 With:NONE, XXXX Address: [phone] When: Unknown [facility] 02-03-2023 Evaluation note Encounter Date Diagnosis Assessment Notes January, Lumbar disc herniation (ICD-10 - M51.26) I independently reviewed the MRI of the lumbar spine with Dr Wilson and face to face with patient which shows, L5-S1 disc bulge with a superimposed right central and subarticular disc protrusion. There is a mass effect on the transverse right S1 nerve root with mild to moderate spinal canal narrowing as well as a mild to the left and moderate right neural foraminal stenosis. At L4-L5, there is a broad disc bulge with mild spinal canal narrowing with mild bilateral neuroforaminal narrowing similar to previous exam. It is unsure to me whether this is a recurrent disc. Jayy has recently started new job at a [employer], discussion of conservative therapy, will continue with pain management Dr. Vargas. Will order pharmacological management, gabapentin 300 mg daily. We will follow-up in 12 weeks or sooner if symptoms worsen. January, Sacroiliac inflammation (ICD-10 - M46.1) January, Paresthesia of skin (ICD-10 - R20.2) January, BMI 34.0-34.9,adult (ICD-10 - Z68.34) Discussion of diet and exercise advised to decrease sugar intake, stop sugary drinks January, Encounter for screening for depression (ICD-10 - Z13.31) PHQ reviewed score 0 negative screening [email or web address] Other 04-28-2023 Evaluation note* Encounter Date Diagnosis Assessment Notes Treatment Notes Treatment Clinical Notes Dec, Lumbar radiculopathy, right (ICD-10 - M54.16) Ms Musa continues to have right leg pain down the back and into the foot. Recent S/p Right lumbar transforaminal epidural injection of L5-S1 on 12/22 states no relief of symptoms. States has slight improvement with a little relief when in the aqua therapy pool but the next day it is back to a constant burning. Will order MRI w/wo to determine reoccurance and interventional procedures. Follow up once imaging is completed Dec, Lumbar disc herniation (ICD-10 - M51.26) [email or web address] Other 03-28-2023 Evaluation note* Encounter Date Diagnosis Assessment Notes Treatment Notes Treatment Clinical Notes Nov, Other spondylosis with radiculopathy, lumbar region (ICD-10 - M47.26) We discussed treatment options for the patient's persistent lumbar pain radiating into the posterior aspect of her right lower extremity into her foot. MRI results show evidence of disc protrusion and some evidence bilateral neural foraminal narrowing without significant central canal stenosis, which is consistent with her pain symptoms. Given MRI results, as well as location of pain and exam findings, patient is a candidate for a right lumbar transforaminal epidural steroid injection under fluoroscopic guidance, which we will proceed with. Of note, her pain is likely coming primarily from S1 however we will also do the transforaminal epidural at L5 given her pain symptoms. Risks and benefits of procedure explained to patient; patient verbalizes understanding. Anatomy of spine discussed in detail with patient in regard to patients condition. Nov, Spinal stenosis of lumbar region (ICD-10 - M48.061) Nov, Other chronic pain (ICD-10 - G89.29) Nov, Other Above note writ ten by Garcia Bess LPN, Soap Drier Operator. Edited and approved by Dr. Silas Vargas MD. [email or web address] Other 03-07-2023 Evaluation note* Encounter Date Diagnosis Assessment Notes Treatment Notes Treatment Clinical Notes Nov, Sacroiliac inflammation (ICD-10 - M46.1) The patient tells me that her pain is mostly in the sacroiliac joint on the right. She has little radicular leg pain but she gets occasional cramps in the leg. She seems a bit uncomfortable. I recommended pain management for sacroiliac injections. I think clinically she has had an overall good outcome, I do not believe she has any disability issues.After her pain management she will follow-up with our nurse practitioner to continue to monitor progress. Nov, Lumbar disc herniation (ICD-10 - M51.26) Nov, Other spondylosis with radiculopathy, lumbar region (ICD-10 - M47.26) [email or web address] Other 02-09-2023 Evaluation note* Encounter Date Diagnosis Assessment Notes Treatment Notes Treatment Clinical Notes Oct, Lumbar disc herniation (ICD-10 - M51.26) I think the patient is actually doing well from her operation. She states she has had this problem the prolonged length of time. She is having residual S1 difficulties. I am giving her Gabapentin 300 mg p.o. twice daily to try and help. She is to continue with physical therapy, as she has not gone regularly as ordered. As a matter of fact, she has attended only 2 or 3 sessions thus far. If she still has the symptoms in a month I would repeat an MRI of the lumbar spine to ensure there is no recurrent disc herniation. Patient understands and agrees. I have extended her time off until November 19, 2022. Her shiort term disability will run out then. [email or web address] Other 01-12-2023 Evaluation note* Encounter Date Diagnosis Assessment Notes Treatment Notes Treatment Clinical Notes Sep, History of lumbar discectomy (ICD-10 - Z98.890) She doing well postop discectomy surgery, incision healed well approximated. Advised to take prednisone as needed. Will refer to physical therapy for core strengthening. Follow up in 8 weeks. Sep, Sacroiliac inflammation (ICD-10 - M46.1) Sep, Paresthesia of skin (ICD-10 - R20.2) [email or web address] Other 11-15-2022 Evaluation note* Encounter Date Diagnosis Assessment Notes Treatment Notes Treatment Clinical Notes Jul, Other spondylosis with radiculopathy, lumbar region (ICD-10 - M47.26) Patients primary complaint today is progressing low lumbar pain radiating into the posterior and lateral aspect of her lower extremities bilaterally. Patient has failed multiple conservative treatment options. Recent MRI results show evidence of disc protrusion and some evidence bilateral neural foraminal narrowing without significant central canal stenosis. It was discussed how this may coorelate with her pain symptoms. Given failure of conservative measures, patient is a candidate for a lumbar epidural steroid injection which we will proceed with. Risks and benefits of procedure explained to patient; patient verbalizes understanding. She was also encouraged to continue with plans to establish with neurosurgery. We will follow up with the patient after her epidural to determine that she is receiving adequate relief. Anatomy of spine discussed in detail with patient in regards to patients condition. Jul, Spinal stenosis of lumbar region (ICD-10 - M48.061) Jul, Other chronic pain (ICD-10 - G89.29) Jul, Other Above note writ ten by Vaibhav Werner MA, Soap Drier Operator. Edited and approved by Dr. Silas Vargas MD. Medical decision making shows a new problem to me with further workup planned or suggested with the potential for extensive treatment options that were considered with the most applicable given this patient's situation as noted above. Treatment options considered include a combination of physical therapy approaches, pharmacologic management, and interventional procedures. Those most applicable to the patient were discussed at this time. Risk of complications and/or morbidity and mortality is high given that acute and chronic pain poses a threat to life and bodily function if undertreated, poorly treated or with failure to maintain adequate treatment and timely followup. Given the serious and fluctuating nature of pain with extensive consideration for whenever pain changes, there always remains the possibility of prolonged functional impairment requiring constant patient reassessment and high-level medical decision making. The amount and complexity of data reviewed is high given that patient labs, radiology reports, and other test were obtained, reviewed and summarized as applicable from the physician portal and/or outside medical records. Pertinent positive and negative findings were considered in medical decision-making. [email or web address] Other Evaluation + Plan note No data available for this section [facility] Evaluation noteNo assessment information available [facility] Work Phone: Evaluation note* Diagnosis Onset Date Resolution Status Lumbar radiculopathy acute [facility] Work Phone: Evaluation noteNo [employer] Other evaluation note* Diagnosis Nausea- Primary Nausea alone Diarrhea, unspecified type Food poisoning Unspecified food poisoning documented in this encounter [facility] Narrative - Reported* Type Description Date Medical History depression Surgical History cesaraen Surgical History Oral Surgical History Rhinoplasty Hospitalization History See above [email or web address] Other Hospital Discharge instructions Additional Instructions DISCHARGE INSTRUCTIONS FOR LUMBAR DISCECTOMY, LAMINECTOMY, LAMINOTOMY, DECOMPRESSION DIET -No restrictions unless diabetic or cardiac ACTIVITY -Activity as tolerated; no lifting over 10 pounds -Encourage ambulation -No driving until seen by your physician; may ride in car -No need to cover incision site -May shower on Thursday. -There is a liquid bandage on the wound, no dressing should be required unless drainage is noted. -Is ice 20 minutes every 1-2 hours as needed for back spasm -Use the prednisone provided if your leg pain returns to a significant degree. Otherwise please do not use the prednisone. OTHER -Call your physician's office for any of the following: fever, swelling, nausea, vomiting, drainage, numbness, tingling, or bowel and bladder changes. -Please call your physician's office to make an appointment to see your physician in two weeks.[facility] Work Phone: Hospital Discharge instructions Additional Instructions Follow-up with your primary care doctor Return to ED if develop worsening symptoms or concernsBarber[facility] Work Phone: Progress note Author Hayder Wilson [facility] August 23, 2022 10:24am Note Date/Time August 23, 2022 10:24am [facility] [address] [place] [address] Neurosurgery Progress Note Signed Patient: Darrell Musa MR#: [id number] : 1990 Acct:[id number] Age/Sex: 32 / F Adm Date: 2 Loc: 4N Room: 8E7064-0 Type: REG [facility] Attending Dr: Hayder Wilson MD Copies to: ~ Date of Service: 08/23/2022 Subjective Subjective HPI: Patient complains of minimal back discomfort no right leg pain. She has some discomfort in the left lateral leg that I noted was present before surgery and explained was probably not related to her acute problem Exam Physical Exam Vital Signs: Temp Pulse Resp BP Pulse Ox O2 Del Method O2 Flow Rate 97.6 F 63 18 115/65 99 Room Air 8 08/23/22 04:20 08/23/22 04:20 08/23/22 04:20 08/23/22 04:20 08/23/22 04:20 08/23/22 04:20 08/22/22 08:25 Narrative: Incision dry Some bruising at the superior portion of the incision. Straight leg raising negative right Gait normal Patient sitting comfortable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
== END 2024-09-17 06:12 | disposition home or self-care (01) ==
LOC: ER 05:36
PROVIDERS: Emergency Provider Emergency Medicine
DX: M54.31 Sciatica, right side (principal); M54.32 Sciatica, left side; Z76.0 Encounter for issue of repeat prescription; S70.11XA Contusion of right thigh, initial encounter; X58.XXXA Exposure to other specified factors, initial encounter
CPT/HCPCS: 99283